=== PATIENT | female | born 1975 | race Two or more races ===

== ENCOUNTER 2020-11-07 10:04 | Emergency (ER) | payer OTHER ==
[~2020-11-07] VITALS: Ht 167.6 cm; Wt 81.2 kg
[2020-11-07] MEDS ORDERED: VALSARTAN160 MG (10:31)
[2020-11-07] MEDS ORDERED: NORETHINDRONE AC5 M1 (10:32)
== END 2020-11-07 19:58 ==
LOC: ER 10:04
DX: N39.8 Other specified disorders of urinary system (principal); Z20.822 Contact with and (suspected) exposure to COVID-19

== ENCOUNTER 2020-12-15 08:15 | Inpatient (IN) | payer OTHER ==
[~2020-12-15] VITALS: Ht 167.6 cm; Wt 81.2 kg
[~2020-12-15 08:15] MED LIST: NORETHINDRONE AC5 M1; VALSARTAN160 MG
[2020-12-15] MEDS ORDERED: FERROCITE PLUS1 EACH PO (10:36)
[2020-12-16] MEDS ORDERED: VALSARTAN-HCTZ1 EAC1 (13:02)
[2020-12-16] MEDS ORDERED: NORETHINDRONE AC5 MG (13:03)
[2020-12-20] MEDS ORDERED: SURFAK240 M1 PO (11:36)
[2020-12-20] MEDS ORDERED: PERCOCET 5-3251 EACH PO (11:36)
== END 2020-12-20 12:43 | disposition home or self-care (01) | DRG 743 ==
LOC: EDSTATUS 08:15 → ADM 08:15 → SURH 12-16 07:00 → O/R 12-16 10:30 → OB/GYN 12-17 08:30
PROVIDERS: Urology; ADMIT Obstetrics & Gynecology; ATTEND Obstetrics & Gynecology
PROC: 0T9880Z Drainage of Bilateral Ureters with Drainage Device, Via Natural or Artificial Opening Endoscopic (ICD-10-PCS; 2020-12-17)
PROC: 0UT90ZZ Resection of Uterus, Open Approach (ICD-10-PCS; principal; 2020-12-17 10:45)
PROC: 0UB70ZZ Excision of Bilateral Fallopian Tubes, Open Approach (ICD-10-PCS; 2020-12-17 10:45)
DX: N80.0 Endometriosis of uterus (principal); N72 Inflammatory disease of cervix uteri; D25.0 Submucous leiomyoma of uterus; D25.1 Intramural leiomyoma of uterus; D25.2 Subserosal leiomyoma of uterus; N83.8 Other noninflammatory disorders of ovary, fallopian tube and broad ligament; N93.8 Other specified abnormal uterine and vaginal bleeding; D64.9 Anemia, unspecified; I10 Essential (primary) hypertension